=== PATIENT | male | born 1930 | race Caucasian/White ===

== ENCOUNTER 2018-09-15 10:07 | Emergency (ER) | payer OTHER, MEDICARE ==
[~2018-09-15] VITALS: Wt 75.7 kg
--- NOTE | ~2018-09-15 | EKG ---
[place], [place] ELECTROCARDIOGRAM REPORT NAME: DUANE LAWSON UNIT #: [id number] ROOM: DOCTOR: DIYA DRAFT REPORT BIRTHDATE: [birth year] [facility] Test Date: 2018-09-15 Test Time: 10:20:00 Pat Name: DUANE LAWSON Department: Room: Gender: [employer] Worker: Jenna Moore : 1930 Requested By: ALEX ABRAHAM Order Number: [id number] Reading MD: Emre Gallardo MD Measurements Intervals [place] Rate: 72 P: 72 MT: 164 QRS: 65 QRSD: 110 T: 69 QT: 390 QTc: 427 Interpretive Statements Sinus rhythm RSR' in V1 or V2, right VCD or RVH No previous ECG available for comparison Electronically Signed On 09-15-2018 16:32:32 PST by Emre Gallardo MD CM:EKGRPT:ELECTROCARDIOGRAM REPORT 1020 [id number] ALEX CARTER DRAFT REPORT ALEX ABRAHAM DO
[2018-09-15 10:34] LABS: BASO % 0.6 % (0.0-1.0); EOS # 0.2 10*3/uL (0.0-0.4); EOS % 4.7 % (1.0-4.0); HEMATOCRIT 40.5 % (42.0-52.0); HEMOGLOBIN 13.3 g/dl (14.0-18.0); LYMPH # 0.7 10*3/uL (1.3-4.4); LYMPH % 14.3 % (27.0-41.0); MEAN CELL VOLUME 103.1 fl (80.0-94.0); MEAN CORPUSCULAR HGB 33.8 pg (27.0-31.0); MEAN CORPUSCULAR HGB CONC 32.8 g/dl (33.0-37.0); MEAN PLATELET VOLUME 9.2 fl (9.6-12.3); MONO # 0.4 10*3/uL (0.1-1.0); NEUT # 3.7 10*3/uL (2.3-7.9); NEUT % 72.2 % (47.0-73.0); PLATELET COUNT AUTOMATED 248 10*3/uL (130-400); RED BLOOD COUNT 3.93 10*6/uL (4.50-5.90); RED CELL DISTRI WIDTH 12.6 % (0-14.5); WHITE BLOOD COUNT 5.1 10*3/uL (4.8-10.8)
[2018-09-15 10:54] LABS: ACT PARTIAL THROMBO TIME 34.4 SECONDS (20.8-31.5); INTERNATIONAL NORM RATIO 2.5 (2.0-3.5)
[2018-09-15 11:02] LABS: ALBUMIN 3.4 gm/dl (3.1-4.5); ALKALINE PHOSPHATASE 68 U/L (45-117); BUN 24 mg/dl (7-24); CHLORIDE 110 mmol/L (98-107); CREATININE 1.41 mg/dL (0.70-1.30); LIPASE 220 U/L (73-393); POTASSIUM 5.7 mmol/L (3.5-5.1); SGOT/AST 21 IU/L (3-35); SGPT/ALT 20 U/L (12-78); SODIUM 141 mmol/L (136-145); TOTAL PROTEIN 7.6 gm/dL (6.4-8.2)
[2018-09-15 11:04] LABS: TROPONIN I < 0.015 ng/ml (<0.045)
[2018-09-15 11:19] LABS: BILIRUBIN NEGATIVE (NEGATIVE); BLOOD NEGATIVE (NEGATIVE); CLARITY CLEAR (CLEAR); COLOR YELLOW (YELLOW); GLUCOSE NEGATIVE (NEGATIVE); KETONE NEGATIVE (NEGATIVE); LEUKO ESTERASE NEGATIVE (NEGATIVE); NITRITE NEGATIVE (NEGATIVE); UROBILINOGEN 0.2 E.U./dl (0.2-1.0)
[2018-09-15 11:56] LABS: MUCOUS TRACE; WBC 0-2 wbc/hpf (0-5)
== END 2018-09-15 14:26 | disposition short-term general hospital (02) ==
LOC: ED 10:07
PROVIDERS: Emergency Medicine
DX: G45.9 Transient cerebral ischemic attack, unspecified (principal)